=== PATIENT | female | born 1995 | race African-American/Black ===

== ENCOUNTER 2023-03-05 15:00 | Inpatient (IN) | payer OTHER ==
[2023-03-05] MEDS ORDERED: DEXTROSE 5%-LACTATED RINGERS 1,000 ML IV SCH (15:30)
[2023-03-05] MEDS ORDERED: DINOPROSTONE 10 MG VAGINAL SUPPOSITORY VG ONE (16:45)
[2023-03-05 17:06] VITALS: BMI 23.8
[2023-03-05 17:09] LABS: EOS % 3.7 % (0-4.5); HEMATOCRIT 30.7 % (32.4-45.2); HEMOGLOBIN 10.2 GM/dL (10.7-15.3); LYMPH % 23.2 % (8-40); MCH 28.2 pg (25.7-33.7); MCHC 33.3 g/dl (32.0-36.0); MEAN CELL VOLUME 84.7 fl (80-96); MEAN PLT VOLUME 10.4 fl (7.5-11.1); MONO % 11.5 % (3.8-10.2); NEUT % 60.6 % (42.8-82.8); PLATELET COUNT 200 10^3/uL (134-434); RBC 3.62 M/mm3 (3.60-5.2); RDW 16.6 % (11.6-15.6); WHITE BLOOD COUNT 6.4 K/mm3 (4.0-10.0)
[2023-03-05 17:17] LABS: INR 0.95 (0.83-1.09)
[2023-03-05 17:19] LABS: ACTIVATED PTT 26.5 SECONDS (25.2-36.5)
[2023-03-05 17:42] LABS: POTASSIUM 4.4 mmol/L (3.5-5.1)
[2023-03-05 17:43] LABS: CALCIUM 8.4 mg/dL (8.5-10.1)
[2023-03-05 17:46] LABS: CREATININE 0.6 mg/dL (0.55-1.3)
[2023-03-06] MEDS ORDERED: OXYTOCIN 30 UNITS in 0.9% NS 30 UNIT/500 ML INFUS.BAG IVPB SCH (08:25)
[2023-03-06] MEDS ORDERED: OXYTOCIN 30 UNITS in 0.9% NS 30 UNIT/500 ML INFUS.BAG IVPB ONE (08:27)
[2023-03-06] MEDS ORDERED: BUTORPHANOL TARTRATE 2 MG/ML VIAL IVPB PRN (15:19)
[2023-03-06] MEDS ORDERED: AMPICILLIN SODIUM 2 GM VIAL ONE (15:22)
[2023-03-06] MEDS ORDERED: AMPICILLIN - 2 GM in SODIUM CHLORIDE 100 ML IVPB ONE (15:22)
[2023-03-06] MEDS ORDERED: ELECTROLYTE-148 SOLN 1,000 ML IV SCH (15:30)
[2023-03-06] MEDS ORDERED: AMPICILLIN SODIUM 1 GM VIAL ONE ×2 (18:45→23:58)
[2023-03-06] MEDS: AMPICILLIN - 1 GM in SODIUM CHLORIDE 100 ML IVPB SCH ×2 (18:50→23:55)
[2023-03-06] MEDS ORDERED: FENTANYL/BUPIVACAINE/NS/PF - PCEA - 50 ML DISP.SYRIN EP ONE (19:15)
[2023-03-06] MEDS ORDERED: BUPIVACAINE HCL/PF 0.25% (2.5MG/ML) 10 ML VIAL ONE (19:58)
[2023-03-06] MEDS ORDERED: NALOXONE HCL 0.4 MG/ML VIAL IVPUSH PRN (20:21)
[2023-03-06] MEDS: FENTANYL/BUPIVACAINE/NS/PF - PCEA - 50 ML DISP.SYRIN EP SCH (20:30)
[2023-03-06] MEDS ORDERED: OXYTOCIN 20 UNITS in 0.9% NS 20 UNIT/1,000 ML INFUS.BAG IV ONE (23:52)
[2023-03-07] MEDS ORDERED: FENTANYL/BUPIVACAINE/NS/PF - PCEA - 50 ML DISP.SYRIN EP ONE ×2 (00:25→01:15)
[2023-03-07] MEDS: FENTANYL/BUPIVACAINE/NS/PF - PCEA - 50 ML DISP.SYRIN EP SCH (01:35)
[2023-03-07] MEDS ORDERED: METHYLERGONOVINE MALEATE 0.2 MG/1 ML AMP IM PRN (01:47)
[2023-03-07] MEDS ORDERED: ACETAMINOPHEN 325 MG TABLET (FP) PO PRN (01:47)
[2023-03-07] MEDS ORDERED: WITCH HAZEL 50% (TUCKS) 40 PAD/JAR PAD TP PRN (01:47)
[2023-03-07] MEDS ORDERED: BENZOCAINE 20% 57 GM BOTTLE TP PRN (01:47)
[2023-03-07] MEDS ORDERED: BISACODYL 10 MG SUPP.RECT RC PRN (01:47)
[2023-03-07] MEDS ORDERED: BENZOCAINE 28 GM HEMORRHOIDAL OINTMENT TP PRN (01:47)
[2023-03-07] MEDS ORDERED: IBUPROFEN 600 MG TABLET (FP) PO PRN (01:47)
[2023-03-07] MEDS ORDERED: oxyCODONE HCL 5 MG TABLET PO PRN (01:47)
[2023-03-07] MEDS ORDERED: OXYTOCIN 20 UNITS in 0.9% NS 20 UNIT/1,000 ML INFUS.BAG IV SCH (02:00)
[2023-03-07 04:00] LABS: CORD BASE EXCESS -8.8 mmol/L (0-2); CORD HCO3 17.2 mmHg (20-29); CORD PCO2 37.4 mmHg (30-78); CORD pH 7.28 (7.14-7.44)
[2023-03-07 04:01] LABS: CORD BASE EXCESS -8.5 mmol/L (0-2); CORD HCO3 17.5 mmHg (20-29); CORD pH 7.281 (7.14-7.44)
[2023-03-07] MEDS: FERROUS SO4 325 MG TABLET (FP) PO SCH ×3 (08:24→18:32)
[2023-03-07] MEDS: PRENATAL VITAMINS W/ FOLIC ACID TABLET (FP) PO SCH (09:32)
[2023-03-07 22:04] VITALS: RESP 17
[2023-03-08 06:36] LABS: BASO % 0.6 % (0-2.0); EOS % 1.6 % (0-4.5); HEMATOCRIT 23.9 % (32.4-45.2); HEMOGLOBIN 7.9 GM/dL (10.7-15.3); LYMPH % 20.3 % (8-40); MCH 28.5 pg (25.7-33.7); MEAN CELL VOLUME 86.4 fl (80-96); MEAN PLT VOLUME 10.6 fl (7.5-11.1); MONO % 7.9 % (3.8-10.2); NEUT % 69.6 % (42.8-82.8); PLATELET COUNT 180 10^3/uL (134-434); RBC 2.77 M/mm3 (3.60-5.2); RDW 16.5 % (11.6-15.6); WHITE BLOOD COUNT 12.1 K/mm3 (4.0-10.0)
[2023-03-08] MEDS: FERROUS SO4 325 MG TABLET (FP) PO SCH ×2 (08:33→13:01)
[2023-03-08] MEDS: PRENATAL VITAMINS W/ FOLIC ACID TABLET (FP) PO SCH (09:23)
[2023-03-08 10:43] VITALS: BP 100/57; PULSE 81; TEMP 97.5
[2023-03-08] MEDS ORDERED: SENNOSIDES/DOCUSATE COMBO (SENNA PLUS) TABLET (UD) PO PRN (22:00)
== END 2023-03-08 16:55 | disposition home or self-care (01) | DRG 560 ==
LOC: JLDR 15:00 → J3W 03-07 05:08
PROVIDERS: ADMIT Obstetrics & Gynecology; ATTEND Obstetrics & Gynecology
PROC: 10E0XZZ Delivery of Products of Conception, External Approach (ICD-10-PCS; principal; 2023-03-07)
PROC: 0W8NXZZ Division of Female Perineum, External Approach (ICD-10-PCS; 2023-03-07)
DX: O48.0 Post-term pregnancy (principal); Z3A.41 41 weeks gestation of pregnancy; O99.824 Streptococcus B carrier state complicating childbirth; Z37.0 Single live birth
CPT/HCPCS: 36415; 36600; 80048; 82803; 85025; 85610; 85730; 86780; 86850; 86900; 86901